=== PATIENT | female | born 1995 | race African-American/Black ===

== ENCOUNTER 2017-03-23 18:11 | Emergency (ER) | payer OTHER, MEDICAID ==
[~2017-03-23] VITALS: Ht 170.2 cm; Wt 73.9 kg
[2017-03-23] MEDS ORDERED: NKM (18:25)
[2017-03-23 18:30] VITALS: BP 113/76
[2017-03-23 18:59] LABS: BASOPHILS % (AUTO) 1.7 % (0.0-2.0); EOSINOPHILS % (AUTO) 0.2 % (0.0-3.0); LYMPHOCYTES % (AUTO) 15.8 % (20.0-45.0); MEAN CORPUSCULAR HEMOGLOBIN 29.1 PG (27.0-31.0); MEAN CORPUSCULAR VOLUME 86 FL (80-99); MEAN PLATELET VOLUME 7.9 FL (6.5-10.1); MONOCYTES % (AUTO) 11.9 % (1.0-10.0); NEUTROPHILS % (AUTO) 70.5 % (45.0-75.0); PLATELET COUNT 184 K/UL (150-450); RED BLOOD COUNT 5.46 M/UL (4.20-5.40); RED CELL DISTRIBUTION WIDTH 14.2 % (11.6-14.8); WHITE BLOOD COUNT 12.7 K/UL (4.8-10.8)
[2017-03-23 19:19] LABS: ALANINE AMINOTRANSFERASE 6 U/L (3-33); ANION GAP 16 (5-15); ASPARTATE AMINO TRANSFERASE 13 U/L (5-40); CALCIUM 9.1 mg/dL (8.6-10.2); CARBON DIOXIDE 22 mEQ/L (20-30); CHLORIDE 94 mEQ/L (98-107); CREATININE 0.8 mg/dL (0.5-0.9); GLOMERULAR FILTRATION RATE > 60 mL/min (>60); HEMOLYSIS 4; LIPASE 22 U/L (< 60); POTASSIUM 4.1 mEQ/L (3.4-4.9); SODIUM 132 mEQ/L (135-145); TOTAL PROTEIN 8.6 g/dL (6.6-8.7)
--- NOTE | 2017-03-23 19:23 | Emergency Room Report ---
History of Present Illness General Chief Complaint: Flu Like Symptoms Source: Patient Present Illness HPI 22-year-old female presents to the emergency department complaining of fevers, cough, body-aches, and nausea, vomiting, diarrhea x2 days. Patient denies abdominal pain or tenderness. Patient denies ill contacts or recent travel. Pt is UTD with vaccinations. Denies productive cough. Denies ,low back pain, dysuria, frequency, or hematuria. denies rashes, trauma or falls. Denies CP, Palpitations, LOC, AMS, dizziness, Changes in Vision, Sensation, paresthesias, or a sudden severe headache. Allergies: Coded Allergies: No Known Allergies (Unverified , 03/23/17) Patient History Past Medical History: see triage record Past Surgical History: none Pertinent Family History: none Last Menstrual Period: March 08, 2017. Now: No Immunizations: UTD Reviewed Nursing Documentation: PMH: Agreed, PSxH: Agreed Nursing Documentation-PMH Past Medical History: No Stated History Review of Systems All Other Systems: negative except mentioned in HPI Physical Exam Vital Signs Date Time Temp Pulse Resp B/P Pulse Ox O2 Delivery O2 Flow Rate FiO2 03/23/17 18:19 102.0 108 20 113/76 98 Room Air Sp02 EP Interpretation: reviewed, normal General Appearance: no apparent distress, alert, GCS 15, non-toxic Head: normocephalic, atraumatic Eyes: bilateral eye PERRL, bilateral eye normal inspection ENT: hearing grossly normal, normal pharynx, no angioedema, normal voice, TMs + canals normal, uvula midline, dry mucus membranes Neck: full range of motion, no meningismus, supple/symm/no masses, tender lateral - trapezium muscle ttp bilaterally. from of neck Respiratory: lungs clear, normal breath sounds, no rhonchi, no respiratory distress, no accessory muscle use, no wheezing, speaking full sentences Cardiovascular #1: regular rate, rhythm, no edema Gastrointestinal: normal bowel sounds, non tender, soft, no guarding, no rebound, other - Negative [place] signs, Negative MacBurney's sign, Negative Rosvigns Sign, Negative Psoas, No Peritoneal signs. Rectal: deferred Genitourinary: normal inspection, no CVA tenderness Musculoskeletal: back normal, gait/station normal, normal range of motion, non- tender Neurologic: alert, oriented x3, responsive, motor strength/tone normal, sensory intact, normal gait, speech normal Psychiatric: judgement/insight normal, memory normal, mood/affect normal Skin: normal color, no rash, warm/dry, well hydrated Lymphatic: no adenopathy Medical Decision Making PA Attestation Dr. king is my supervising Physician whom patient management has been discussed with. Diagnostic Impression: Primary Impression: UTI (urinary tract infection) Qualified Codes: N30.01 - Acute cystitis with hematuria Additional Impressions: Gastroenteritis Dehydration, mild Cough in adult ER Course 22-year-old female presents to the emergency department complaining of fevers, cough, body-aches, and nausea, vomiting, diarrhea x2 days. Patient denies abdominal pain or tenderness. Patient denies ill contacts or recent travel. Pt is UTD with vaccinations. Denies productive cough. Denies ,low back pain, dysuria, frequency, or hematuria. denies rashes, trauma or falls. Denies CP, Palpitations, LOC, AMS, dizziness, Changes in Vision, Sensation, paresthesias, or a sudden severe headache. Ddx considered but are not limited to URI, pneumonia, PE, strep pharyngitis, meningitis, GE, dehydration Vital signs: Pt. is afebrile, the remaining VS are WNL H&PE are most consistent with URI- no meningeal signs, oropharynx is not involved, no evidence of bacterial infection at this time. ORDERS: -CBC: mild elevated wbc's 12.9 - most likely secondary to Viral GE, or UTI -CMP: mild hyponatremia and Cl- -Lipase: WNL -Urine Hcg: negative -UA: nitrite positive, many bacteria, elevated WBC's an Leuks. ED INTERVENTIONS: - Tylenol PO - Zofran 4 mg IV - 1000cc NS bolus -Toradol IV -100mg Macrobid PO - Oral fluid and food challenge- pt was able to tolerate both without vomiting. --PT. EDUCATION: Discussed with pt. symptoms that would indicate prompt return to the ED. otherwise stable for close outpatient follow up. DISCHARGE: At this time pt. is stable for d/c to home. Will provide printed patient care instructions, and any necessary prescriptions. Care plan and follow up instructions have been discussed with the patient prior to discharge. Labs Test 03/23/17 18:40 White Blood Count 12.7 K/UL (4.8-10.8) Red Blood Count 5.46 M/UL (4.20-5.40) Hemoglobin 15.9 G/DL (12.0-16.0) Hematocrit 46.7 % (37.0-47.0) Mean Corpuscular Volume 86 FL (80-99) Mean Corpuscular Hemoglobin 29.1 PG (27.0-31.0) Mean Corpuscular Hemoglobin Concent 34.0 G/DL (32.0-36.0) Red Cell Distribution Width 14.2 % (11.6-14.8) Platelet Count 184 K/UL (150-450) Mean Platelet Volume 7.9 FL (6.5-10.1) Neutrophils (%) (Auto) 70.5 % (45.0-75.0) Lymphocytes (%) (Auto) 15.8 % (20.0-45.0) Monocytes (%) (Auto) 11.9 % (1.0-10.0) Eosinophils (%) (Auto) 0.2 % (0.0-3.0) Basophils (%) (Auto) 1.7 % (0.0-2.0) Urine Color Pale yellow Urine Appearance Cloudy Urine pH 7 (4.5-8.0) Urine Specific [place] 1.005 (1.005-1.035) Urine Protein 1+ (NEGATIVE) Urine Glucose (UA) Negative (NEGATIVE) Urine Ketones Negative (NEGATIVE) Urine Occult Blood 2+ (NEGATIVE) Urine Nitrite Positive (NEGATIVE) Urine Bilirubin Negative (NEGATIVE) Urine Urobilinogen 4 MG/DL (0.0-1.0) Urine Leukocyte Esterase 3+ (NEGATIVE) Urine RBC 10-15 /HPF (0 - 2) Urine WBC Tntc /HPF (0 - 2) Urine Squamous Epithelial Cells Many /LPF (NONE/OCC) Urine Bacteria Many /HPF (NONE) Urine HCG, Qualitative Negative Sodium Level 132 mEQ/L (135-145) Potassium Level 4.1 mEQ/L (3.4-4.9) Chloride Level 94 mEQ/L (98-107) Carbon Dioxide Level 22 mEQ/L (20-30) Anion Gap 16 (5-15) Blood Urea Nitrogen 8 mg/dL (7-23) Creatinine 0.8 mg/dL (0.5-0.9) Estimat Glomerular Filtration Rate > 60 mL/min (>60) Glucose Level 95 mg/dL (74-106) Calcium Level 9.1 mg/dL (8.6-10.2) Total Bilirubin 0.4 mg/dL (0.0-1.2) Aspartate Amino Transf (AST/SGOT) 13 U/L (5-40) Alanine Aminotransferase (ALT/SGPT) 6 U/L (3-33) Alkaline Phosphatase 60 U/L (35-104) Total Protein 8.6 g/dL (6.6-8.7) Albumin 4.4 g/dL (3.5-5.2) Globulin 4.2 g/dL Albumin/Globulin Ratio 1.0 (1.0-2.7) Lipase 22 U/L (< 60) Last Vital Signs Date Time Temp Pulse Resp B/P Pulse Ox O2 Delivery O2 Flow Rate FiO2 03/23/17 18:30 102.0 108 20 113/76 98 Room Air Disposition: HOME, SELF-CARE Condition: Stable Scripts Codeine/Promethazine Hcl* (PROMETHAZINE-CODEINE SYRUP*) 118 Ml Syrup 5 ML ORAL Q6H Y for For Cough, #118 ML 0 Refills Prov: Faviola Bose P.A. 03/23/17 Cyclobenzaprine Hcl* (FLEXERIL*) 10 Mg Tablet 10 MG ORAL THREE TIMES A DAY for 5 Days, #15 TAB Prov: Faviola Bose P.A. 03/23/17 Ondansetron Odt* (ZOFRAN ODT*) 4 Mg Tab.rapdis 4 MG ORAL Q6H Y for Nausea & Vomiting, #15 TAB Prov: Faviola Bose P.A. 03/23/17 Ibuprofen* (MOTRIN*) 600 Mg Tablet 600 MG ORAL THREE TIMES A DAY, #30 TAB 0 Refills Prov: Faviola Bose P.A. 03/23/17 Nitrofurantoin Monohyd/M-Cryst* (MACROBID 100 MG*) 100 Mg Capsule 100 MG ORAL EVERY 12 HOURS for 5 Days, #10 CAP Prov: Faviola Bose P.A. 03/23/17 Patient Instructions: Nausea and Vomiting, Adult, [id number], Urinary Tract Infection, [id number] Additional Instructions: Take medications as directed. Follow up with a Primary Care Provider in 3-5 days, even if your symptoms have resolved. --Please review list of primary care clinics, if you do not already have a primary care provider Return sooner to ED if new symptoms occur, or current symptoms become worse. Do not drink alcohol, drive, or operate heavy machinery while taking Flexeril as this may cause drowsiness. - Please note that this Emergency Department Report was dictated using Seesmic[employer] package technology software, occasionally this can lead to erroneous entry secondary to interpretation by the dictation equipment. Faviola Bose Mar 23, 2017 19:23
[2017-03-23 19:26] LABS: APPEARANCE,URINE CLOUDY; KETONES,URINE NEGATIVE (NEGATIVE); LEUKOCYTE ESTERASE ,URINE 3+ (NEGATIVE); NITRITE,URINE POSITIVE (NEGATIVE); PH,URINE 7 (4.5-8.0); PROTEIN,URINE 1+ (NEGATIVE); UROBILINOGEN,URINE 4 MG/DL (0.0-1.0)
[2017-03-23 19:50] LABS: BACTERIA,URINE MANY /HPF; SQUAMOUS EPITHELIAL CELL,UR MANY /LPF (NONE/OCC); WBC,URINE TNTC /HPF (0 - 2)
[2017-03-23 20:00] VITALS: BP 120/70
[2017-03-23] MEDS ORDERED: Ketorolac 30mg Inj IV ONE (20:00)
[2017-03-23] MEDS ORDERED: NITROFURANTOIN100 M2 ORAL (20:11)
[2017-03-23] MEDS ORDERED: ZOFRAN ODT4 MG ORAL (20:11)
[2017-03-23] MEDS ORDERED: IBUPROFEN600 MG ORAL (20:11)
[2017-03-23] MEDS ORDERED: CYCLOBENZAPRINE10 MG ORAL (20:11)
[2017-03-23 20:22] VITALS: BP 120/70
[2017-03-23] MEDS ORDERED: PROMETHAZINE-C118 M1 ORAL (20:26)
== END 2017-03-23 20:22 | disposition home or self-care (01) ==
LOC: EMR 20:20
DX: N30.01 Acute cystitis with hematuria (principal); K52.9 Noninfective gastroenteritis and colitis, unspecified; E86.0 Dehydration; R05 Cough; E87.1 Hypo-osmolality and hyponatremia
CPT/HCPCS: 36415; 80053; 81003; 81025; 83690; 85025; 87086; 87181; 96360; 96374; 96375; 99284; J1885; J2405

== ENCOUNTER 2017-03-25 12:24 | Emergency (ER) | payer OTHER, MEDICAID ==
[~2017-03-25] VITALS: Ht 170.2 cm; Wt 73.9 kg
[~2017-03-25 12:24] MED LIST: CYCLOBENZAPRINE10 MG ORAL; IBUPROFEN600 MG ORAL; NITROFURANTOIN100 M2 ORAL; NKM; PROMETHAZINE-C118 M1 ORAL; ZOFRAN ODT4 MG ORAL
[2017-03-25 12:50] VITALS: BP 109/67
[2017-03-25] MEDS ORDERED: Acetaminophen 650 MG SUPP RECTAL ONE (13:15)
[2017-03-25 13:16] LABS: MEAN CORPUSCULAR HEMOGLOBIN 27.5 PG (27.0-31.0); MEAN CORPUSCULAR HGB CONC 32.4 G/DL (32.0-36.0); MEAN CORPUSCULAR VOLUME 85 FL (80-99); MEAN PLATELET VOLUME 8.4 FL (6.5-10.1); PLATELET COUNT 179 K/UL (150-450); RED BLOOD COUNT 5.49 M/UL (4.20-5.40); RED CELL DISTRIBUTION WIDTH 14.2 % (11.6-14.8); WHITE BLOOD COUNT 21.3 K/UL (4.8-10.8)
[2017-03-25] MEDS ORDERED: Ketorolac 30mg Inj IV ONE (13:30)
[2017-03-25 13:41] LABS: ALANINE AMINOTRANSFERASE 8 U/L (3-33); ALBUMIN/GLOBULIN RATIO 0.8 (1.0-2.7); ANION GAP 18 (5-15); ASPARTATE AMINO TRANSFERASE 15 U/L (5-40); CALCIUM 9.3 mg/dL (8.6-10.2); CARBON DIOXIDE 21 mEQ/L (20-30); CHLORIDE 93 mEQ/L (98-107); CREATININE 0.9 mg/dL (0.5-0.9); GLOMERULAR FILTRATION RATE > 60 mL/min (>60); HEMOLYSIS 8; LIPASE 20 U/L (< 60); POTASSIUM 3.7 mEQ/L (3.4-4.9); SODIUM 132 mEQ/L (135-145); TOTAL PROTEIN 8.1 g/dL (6.6-8.7)
[2017-03-25 14:35] VITALS: BP 94/46
[2017-03-25 14:41] LABS: LYMPHOCYTES % (MANUAL) 11 % (20-45); NEUTROPHILS % (MANUAL) 78 % (45-75); TOTAL CELLS COUNTED 100
[2017-03-25 14:42] LABS: BAND NEUTROPHILS % (MANUAL) 0 % (0-8); BASOPHILS % (MANUAL) 0 % (0-2); EOSINOPHILS % (MANUAL) 0 % (0-3); PLATELET ESTIMATE ADEQUATE; PLATELET MORPHOLOGY NORMAL
--- NOTE | 2017-03-25 15:27 | Emergency Room Report ---
History of Present Illness General Chief Complaint: Nausea, Vomiting, and Diarrhea Source: Patient (NASIM WAGNERKaitlin Knott D.O.) Present Illness HPI This patient has several complaints. She was seen 3 days ago for the same symptoms. She states that she has had nausea, vomiting, diarrhea and abdominal pain. She states she also has a sore throat and is difficulty swallowing. She feels chilled and feverish. She states that she was diagnosed with a urinary tract infection and has been taking the oral antibiotics as prescribed. She states that all of her symptoms are worsening. She denies cough or congestion. She denies shortness of breath or chest pain. She has no other complaints. (BERNARDSARI Knott D.O.) Allergies: Coded Allergies: No Known Allergies (Unverified , 03/23/17) Patient History Past Medical History: none Past Surgical History: none Social History: Denies: alcohol use, drug use, smoking Reviewed Nursing Documentation: PMH: Agreed, PSxH: Agreed (SARI WAGNER D.O. ) Nursing Documentation-PMH Past Medical History: No Stated History (SARI WAGNER D.O.) Review of Systems All Other Systems: negative except mentioned in HPI (SARI WAGNER D.O.) Physical Exam Vital Signs Date Time Temp Pulse Resp B/P Pulse Ox O2 Delivery O2 Flow Rate FiO2 03/25/17 12:38 102.9 132 20 117/76 99 Room Air Sp02 EP Interpretation: reviewed, normal General Appearance: no apparent distress, alert, GCS 15, non-toxic Head: normocephalic, atraumatic Eyes: bilateral eye PERRL, bilateral eye normal inspection ENT: hearing grossly normal, no angioedema, normal voice, tonsillar swelling, tonsillar exudate Neck: full range of motion, supple/symm/no masses Respiratory: chest non-tender, lungs clear, normal breath sounds, speaking full sentences Cardiovascular #1: no edema, tachycardia Gastrointestinal: normal bowel sounds, soft, non-distended, no guarding, no rebound, tenderness - TTP lower abdomen Rectal: deferred Musculoskeletal: back normal, gait/station normal, normal range of motion, non- tender Neurologic: alert, oriented x3, responsive, motor strength/tone normal, sensory intact, speech normal Psychiatric: judgement/insight normal, memory normal, mood/affect normal, no suicidal/homicidal ideation Skin: normal color, no rash, warm/dry, well hydrated (SARI WAGNER D.O.) Medical Decision Making Diagnostic Impression: Primary Impression: Pharyngitis Additional Impressions: Leukocytosis Abdominal pain Dehydration Labs Test 03/25/17 13:04 03/25/17 15:20 White Blood Count 21.3 K/UL (4.8-10.8) Red Blood Count 5.49 M/UL (4.20-5.40) Hemoglobin 15.1 G/DL (12.0-16.0) Hematocrit 46.5 % (37.0-47.0) Mean Corpuscular Volume 85 FL (80-99) Mean Corpuscular Hemoglobin 27.5 PG (27.0-31.0) Mean Corpuscular Hemoglobin Concent 32.4 G/DL (32.0-36.0) Red Cell Distribution Width 14.2 % (11.6-14.8) Platelet Count 179 K/UL (150-450) Mean Platelet Volume 8.4 FL (6.5-10.1) Neutrophils (%) (Auto) % (45.0-75.0) Lymphocytes (%) (Auto) % (20.0-45.0) Monocytes (%) (Auto) % (1.0-10.0) Eosinophils (%) (Auto) % (0.0-3.0) Basophils (%) (Auto) % (0.0-2.0) Differential Total Cells Counted 100 Neutrophils % (Manual) 78 % (45-75) Lymphocytes % (Manual) 11 % (20-45) Monocytes % (Manual) 11 % (1-10) Eosinophils % (Manual) 0 % (0-3) Basophils % (Manual) 0 % (0-2) Band Neutrophils 0 % (0-8) Platelet Estimate Adequate Platelet Morphology Normal Red Blood Cell Morphology Normal Sodium Level 132 mEQ/L (135-145) Potassium Level 3.7 mEQ/L (3.4-4.9) Chloride Level 93 mEQ/L (98-107) Carbon Dioxide Level 21 mEQ/L (20-30) Anion Gap 18 (5-15) Blood Urea Nitrogen 8 mg/dL (7-23) Creatinine 0.9 mg/dL (0.5-0.9) Estimat Glomerular Filtration Rate > 60 mL/min (>60) Glucose Level 92 mg/dL (74-106) Calcium Level 9.3 mg/dL (8.6-10.2) Total Bilirubin 0.5 mg/dL (0.0-1.2) Aspartate Amino Transf (AST/SGOT) 15 U/L (5-40) Alanine Aminotransferase (ALT/SGPT) 8 U/L (3-33) Alkaline Phosphatase 59 U/L (35-104) Total Protein 8.1 g/dL (6.6-8.7) Albumin 3.8 g/dL (3.5-5.2) Globulin 4.3 g/dL Albumin/Globulin Ratio 0.8 (1.0-2.7) Lipase 20 U/L (< 60) (SARI WAGNER D.O.) ER Course Patient was signed out to me by Dr. Wagner. I have evaluated the patient. Patient has evidence of severe pharyngitis. However because the patient's difficulty in swallowing CT scan was performed the neck as well as abdomen and pelvis because of the pain. CT scan of the abdomen and pelvis did not show any evidence of acute intra-abdominal emergency. Patient's CT scan of the neck however shows evidence of enlarged tonsils with lymphadenopathy. Because patient severely elevated white blood cell count difficulty tolerating fluids I felt the patient require IV antibiotics. Patient was given a dose IV antibiotics here. Patient will likely require further evaluation. Case was discussed in detail with [facility] physician. Patient will be transferred to [place] for further treatment. Labs Test 03/25/17 13:04 03/25/17 15:20 White Blood Count 21.3 K/UL (4.8-10.8) Red Blood Count 5.49 M/UL (4.20-5.40) Hemoglobin 15.1 G/DL (12.0-16.0) Hematocrit 46.5 % (37.0-47.0) Mean Corpuscular Volume 85 FL (80-99) Mean Corpuscular Hemoglobin 27.5 PG (27.0-31.0) Mean Corpuscular Hemoglobin Concent 32.4 G/DL (32.0-36.0) Red Cell Distribution Width 14.2 % (11.6-14.8) Platelet Count 179 K/UL (150-450) Mean Platelet Volume 8.4 FL (6.5-10.1) Neutrophils (%) (Auto) % (45.0-75.0) Lymphocytes (%) (Auto) % (20.0-45.0) Monocytes (%) (Auto) % (1.0-10.0) Eosinophils (%) (Auto) % (0.0-3.0) Basophils (%) (Auto) % (0.0-2.0) Differential Total Cells Counted 100 Neutrophils % (Manual) 78 % (45-75) Lymphocytes % (Manual) 11 % (20-45) Monocytes % (Manual) 11 % (1-10) Eosinophils % (Manual) 0 % (0-3) Basophils % (Manual) 0 % (0-2) Band Neutrophils 0 % (0-8) Platelet Estimate Adequate Platelet Morphology Normal Red Blood Cell Morphology Normal Sodium Level 132 mEQ/L (135-145) Potassium Level 3.7 mEQ/L (3.4-4.9) Chloride Level 93 mEQ/L (98-107) Carbon Dioxide Level 21 mEQ/L (20-30) Anion Gap 18 (5-15) Blood Urea Nitrogen 8 mg/dL (7-23) Creatinine 0.9 mg/dL (0.5-0.9) Estimat Glomerular Filtration Rate > 60 mL/min (>60) Glucose Level 92 mg/dL (74-106) Calcium Level 9.3 mg/dL (8.6-10.2) Total Bilirubin 0.5 mg/dL (0.0-1.2) Aspartate Amino Transf (AST/SGOT) 15 U/L (5-40) Alanine Aminotransferase (ALT/SGPT) 8 U/L (3-33) Alkaline Phosphatase 59 U/L (35-104) Total Protein 8.1 g/dL (6.6-8.7) Albumin 3.8 g/dL (3.5-5.2) Globulin 4.3 g/dL Albumin/Globulin Ratio 0.8 (1.0-2.7) Lipase 20 U/L (< 60) Urine Color Pale yellow Urine Appearance Clear Urine pH 5 (4.5-8.0) Urine Specific [place] 1.010 (1.005-1.035) Urine Protein 2+ (NEGATIVE) Urine Glucose (UA) Negative (NEGATIVE) Urine Ketones 4+ (NEGATIVE) Urine Occult Blood 1+ (NEGATIVE) Urine Nitrite Negative (NEGATIVE) Urine Bilirubin Negative (NEGATIVE) Urine Urobilinogen Normal MG/DL (0.0-1.0) Urine Leukocyte Esterase 3+ (NEGATIVE) Urine RBC 2-4 /HPF (0 - 2) Urine WBC 5-10 /HPF (0 - 2) Urine Squamous Epithelial Cells Few /LPF (NONE/OCC) Urine Bacteria Moderate /HPF (NONE) Urine HCG, Qualitative Negative (AYALA OVIEDO M.D.) CT/MRI/US Diagnostic Results CT/MRI/US Diagnostic Results : Imaging Test Ordered: CT neck, CT abd/pelvis: Impression Enlarged tonsils, +LINDSAY. No acute findings in the abdomen. Please see official report. (SARI WAGNER D.O.) Last Vital Signs Date Time Temp Pulse Resp B/P Pulse Ox O2 Delivery O2 Flow Rate FiO2 03/25/17 14:35 100.1 103 24 94/46 97 Room Air (SARI WAGNER D.O.) Status: improved (AYALA OVIEDO M.D.) Disposition: XFER SHT-TRM HOSP Condition: Serious Referrals: [facility] (PCP) SARI WAGNER D.O. Mar 25, 2017 15:27 AYALA OVIEDO M.D. Mar 25, 2017 18:15
[2017-03-25] MEDS ORDERED: Clindamycin 900mg 50 ML IVPB ONE (15:30)
[2017-03-25] MEDS ORDERED: NS 1000ml 2,200 ML IVLG ONE (15:30)
[2017-03-25 15:41] LABS: APPEARANCE,URINE CLEAR; KETONES,URINE 4+ (NEGATIVE); LEUKOCYTE ESTERASE ,URINE 3+ (NEGATIVE); NITRITE,URINE NEGATIVE (NEGATIVE); PH,URINE 5 (4.5-8.0); PROTEIN,URINE 2+ (NEGATIVE); UROBILINOGEN,URINE NORMAL MG/DL (0.0-1.0)
[2017-03-25 16:02] LABS: BACTERIA,URINE MODERATE /HPF; SQUAMOUS EPITHELIAL CELL,UR FEW /LPF (NONE/OCC)
[2017-03-25] MEDS ORDERED: Morphine Sulfate 4mg/ml Inj IVP ONE (18:00)
[2017-03-25 18:52] VITALS: BP 106/56
[2017-03-25 19:22] VITALS: BP 106/56
--- NOTE | 2017-03-26 08:30 | Diagnostic Imaging Report ---
Clinical Indication: Abdominal pain, nausea, vomiting and artery of 4 days Technique: No oral contrast utilized, per emergency room physician request IV administration nonionic contrast. Venous phase spiral acquisition obtained through the abdomen and pelvis. Multiplanar reconstructions were generated. Total dose length product 1178 mGycm. CTDIvol(s) 8, 40, 18, 10, 10 mGy, inclusive of neck CT performed at same time. Dose reduction achieved using automated exposure control Comparison: None Findings: Trace free fluid is seen within the pelvic cul-de-sac. There is what appears to be a collapsed left ovarian follicle. Uterus and adnexal structures are otherwise unremarkable. Appendix. No evidence of diverticulosis or diverticulitis. Normal caliber small bowel. No free intraperitoneal air. Distal esophagus, stomach, duodenum are unremarkable. The liver, gallbladder, bile ducts, pancreas, spleen, adrenals, kidneys are unremarkable. No mesenteric or retroperitoneal mass or adenopathy. The included lung bases are clear. The bones are unremarkable. Impression: Trace free pelvic fluid, presumed physiologic, likely secondary to a small collapsed follicle in the left ovary Otherwise unremarkable This agrees with the preliminary interpretation provided overnight by Dr. Cuellar The CT scanner at [facility] is accredited by the [employer] and the scans are performed using protocols designed to limit radiation exposure to as low as reasonably achievable to attain images of sufficient resolution adequate for diagnostic evaluation.
--- NOTE | 2017-03-26 08:33 | Diagnostic Imaging Report ---
Indications: Neck pain and swelling, difficulty swallowing Technique: Spiral acquisitions obtained through the brain. Angled axial and coronal 5 x 5 mm slices were reconstructed. Total dose length product 448 mGycm. CTDI vol(s) 18 mGy. Dose reduction achieved using automated exposure control Comparison: None Findings: There is enlargement of the tonsils bilaterally. There are heterogeneous. No evidence of abscess, however. There is enlargement of bilateral cervical lymph nodes, largest in the right posterior triangle measuring 4 cm long axis dimension. The nasopharynx is incompletely included in the exam. The hypopharynx, larynx, and trachea are unremarkable. Unremarkable thyroid. Normal submandibular glands. The included lung apices are clear. The upper mediastinum is unremarkable. The bones are unremarkable. The visualized portions of the dentition are intact. Impression: Bilateral cervical lymphadenopathy. This may be reactive or neoplastic Bilateral tonsillar hypertrophy. May be part of the above process or may indicate tonsillar inflammation. Correlate with clinical findings. No abnormality to suggest abscess This agrees with the preliminary interpretation provided overnight by Dr. Cuellar The CT scanner at [facility] is accredited by the [employer] and the scans are performed using protocols designed to limit radiation exposure to as low as reasonably achievable to attain images of sufficient resolution adequate for diagnostic evaluation.
== END 2017-03-25 19:26 | disposition short-term general hospital (02) ==
LOC: EMR 13:15
DX: R10.9 Unspecified abdominal pain (principal); E86.0 Dehydration; D72.829 Elevated white blood cell count, unspecified; J02.9 Acute pharyngitis, unspecified; R59.1 Generalized enlarged lymph nodes
CPT/HCPCS: 36415; 70491; 74177; 80053; 81003; 81025; 83690; 85007; 85025; 87086; 96360; 96361; 96374; 96375; 99285; J1885; J2270; J2405; Q9967; S0077

== ENCOUNTER 2020-01-07 07:17 | Emergency (ER) | payer MEDICAID, OTHER ==
[~2020-01-07] VITALS: Ht 170.2 cm; Wt 77.1 kg
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
[2020-01-07 07:41] VITALS: BP 128/81
[2020-01-07] MEDS ORDERED: Ketorolac 30mg Inj IM ONE (08:00)
--- NOTE | 2020-01-07 08:03 | NUR ---
Note anel in EDM - 01/07/20 at 0818 by [email or web address] ED Nurse Note: Refusal of test form completed.
--- NOTE | 2020-01-07 08:03 | NUR ---
ED Nurse Note: Refusal of test form completed.
--- NOTE | 2020-01-07 08:07 | NUR ---
Alfonso tam in EDM - 01/07/20 at 0819 by RENANERMANDavid ED Nurse Note: Pt taken to XR.
--- NOTE | 2020-01-07 08:10 | NUR ---
ED Nurse Note: Pt taken to XR.
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
[2020-01-07] MEDS ORDERED: IBUPROFEN600 M1 ORAL ×3 (09:14→09:57)
[2020-01-07] MEDS ORDERED: CYCLOBENZAPRINE10 MG ORAL ×3 (09:14→09:57)
[2020-01-07 10:00] VITALS: BP 133/77
--- NOTE | 2020-01-07 10:00 | NUR ---
ER DISCHARGE NOTE: Patient is cleared to be discharged per ERMD, pt is aox4, on room air, with stable vital signs. pt was given dc and prescription instructions, pt was able to verbalize understanding, pt id band removed. pt is able to ambulate with steady gait. pt took all belongings. Pt educated on Motrin and Flexeril.
--- NOTE | 2020-01-07 11:48 | NUR ---
Note [email or web address] in ED - 01/07/20 at 1149 by [email or web address] ER DISCHARGE NOTE: Patient is cleared to be discharged per ERMD, pt is aox4, on room air, with stable vital signs. pt was given dc and prescription instructions, pt was able to verbalize understanding, pt id band removed. pt is able to ambulate with steady gait. pt took all belongings. Pt educated on Motrin and Flexeril.
--- NOTE | 2020-01-07 16:30 | Diagnostic Imaging Report ---
Procedure: XRAY Chest 1v Reason for study: Chest pain Comparison films: None. FINDINGS: A single one view chest is obtained. Vascularity is normal. The lung combs are clear bilaterally. Cardiac and mediastinal silhouette are within normal limits. CP angles are sharp. The bony thorax appear unremarkable. IMPRESSION: UNREMARKABLE ONE VIEW CHEST.
--- NOTE | 2020-01-07 16:30 | Diagnostic Imaging Report ---
EXAM: X-RAY XRAY [facility] CLINICAL HISTORY: Back pain. COMPARISON: None FINDINGS: Total of 3 views of the lumbar spine were obtained. Alignment is anatomic. There is no fracture, bony lesions or erosions. Disc spaces are unremarkable. Surrounding soft tissue is normal. IMPRESSION: NO ACUTE BONY ABNORMALITY.
--- NOTE | 2020-01-07 16:30 | Diagnostic Imaging Report ---
EXAM: X-RAY XRAY C Spine 2-3v CLINICAL HISTORY: Neck pain. COMPARISON: None FINDINGS: Total of 3 views of the cervical spine were obtained. There is straightening of the cervical spine perhaps due to spasm. Alignment otherwise anatomic. There is no fracture, bony lesions or erosions. Disc spaces are unremarkable. Surrounding soft tissue is normal. IMPRESSION: STRAIGHTENING OF THE SPINE PERHAPS DUE TO SPASM. OTHERWISE NO FRACTURE OR TRAUMATIC MALALIGNMENT.
--- NOTE | 2020-01-07 16:30 | Diagnostic Imaging Report ---
EXAM: X-RAY XRAY T Spine 2v CLINICAL HISTORY: Back pain. COMPARISON: None FINDINGS: Total of 2 views of the thoracic spine were obtained. Alignment is anatomic. There is no fracture, bony lesions or erosions. Joint spaces are unremarkable. Surrounding soft tissue is normal. IMPRESSION: NO ACUTE BONY ABNORMALITY.
== END 2020-01-07 10:00 | disposition home or self-care (01) ==
LOC: EMR 07:48
DX: S13.4XXA Sprain of ligaments of cervical spine, initial encounter (principal); S20.01XA Contusion of right breast, initial encounter; V43.52XA Car driver injured in collision with other type car in traffic accident, initial encounter; Y92.410 Unspecified street and highway as the place of occurrence of the external cause
CPT/HCPCS: 71045; 72020; 72040; 72070; 96372; 99284; J1885